=== PATIENT | female | born 1960 | race Two or more races ===

== ENCOUNTER 2023-05-27 18:39 | Inpatient (IN) | payer MEDICAID ==
[~2023-05-27] VITALS: Ht 170.2 cm; Wt 86.2 kg
[2023-05-27] MEDS ORDERED: IV NS 0.9% 1,000 ML BAG IV ONE (19:30)
[2023-05-27 19:55] LABS: BASOPHILS % (AUTO) 0.5 % (0.0-2.0); EOSINOPHILS # (AUTO) 0.1 K/uL (0.0-0.7); EOSINOPHILS % (AUTO) 1.2 % (0.0-6.0); HEMATOCRIT 40 % (33-45); HEMOGLOBIN 13.7 g/dL (11.5-14.8); LYMPHOCYTES # (AUTO) 2.5 K/uL (0.8-4.8); LYMPHOCYTES % (AUTO) 32.6 % (20.0-44.0); MEAN CORPUSCULAR HEMOGLOBIN 30 PG (26.0-33.0); MEAN CORPUSCULAR HGB CONC 34 g/dl (31.0-36.0); MEAN CORPUSCULAR VOLUME 87 fL (82-100); MONOCYTES # (AUTO) 0.3 K/uL (0.1-1.30); MONOCYTES % (AUTO) 4.3 % (2.0-12.0); NEUTROPHILS # (AUTO) 4.7 K/uL (1.8-8.9); NEUTROPHILS % (AUTO) 61.4 % (43.0-81.0); PLATELET COUNT (AUTO) 193 K/uL (150-450); RED BLOOD CELL COUNT(AUTO) 4.61 MIL/uL (4.0-5.2); RED CELL DISTRIBUTION WIDTH 12.8 % (11.5-15.0); WHITE BLOOD COUNT (AUTO) 7.7 K/uL (4.3-11.0)
[2023-05-27 20:25] LABS: CALCIUM, SERUM 8.8 mg/dL (8.5-10.1); CARBON DIOXIDE 24 mmol/L (21-32); CHLORIDE 104 mmol/L (98-107); CREATININE 0.7 mg/dL (0.6-1.3); GLUCOSE 136 mg/dL (74-106); POTASSIUM 3.5 mmol/L (3.5-5.1); SODIUM SERUM 141 mmol/L (136-145); UREA NITROGEN, BLOOD 19 mg/dL (7-18)
[2023-05-27 20:38] LABS: NT-PRO BNP 74 pg/mL (0-125)
[2023-05-27] MEDS ORDERED: ONDANSETRON HCL/PF 4 MG/2 ML VIAL ONE (21:20)
[2023-05-27] MEDS ORDERED: ONDANSETRON HCL/PF - ER 4 MG/2 ML VIAL IV ONE (21:30)
[2023-05-28] MEDS ORDERED: ACETAMINOPHEN 325 MG TABLET PO ONE (08:30)
[2023-05-28] MEDS ORDERED: *INSULIN REGULAR(HUMULIN R)HUM 100 UNIT/ML VIAL SQ PRN (08:30)
[2023-05-28] MEDS ORDERED: DEXTROSE 50%-WATER 50 ML DISP.SYRIN IV PRN (08:30)
[2023-05-28] MEDS ORDERED: ZOLPIDEM TARTRATE 5 MG TABLET PO ONE (08:30)
[2023-05-28] MEDS ORDERED: INSULIN REGULAR, HUMAN 100 UNIT/ML 3 ML VIAL SQ PRN (08:30)
[2023-05-28] MEDS: BLOOD SUGAR DIAGNOSTIC 1 EACH STRIP VI SCH ×2 (08:30→12:00)
[2023-05-28] MEDS ORDERED: SEMA0.25 SQ (08:43)
[2023-05-28] MEDS ORDERED: OMEP40CA21 PO (08:43)
[2023-05-28] MEDS ORDERED: EVOL140S2 SQ (08:43)
[2023-05-28] MEDS ORDERED: PANTOPRAZOLE 40 MG TABLET.DR PO SCH (09:00)
[2023-05-28 09:19] LABS: BASOPHILS % (AUTO) 0.5 % (0.0-2.0); EOSINOPHILS # (AUTO) 0.1 K/uL (0.0-0.7); EOSINOPHILS % (AUTO) 1.3 % (0.0-6.0); HEMATOCRIT 39 % (33-45); HEMOGLOBIN 13.2 g/dL (11.5-14.8); LYMPHOCYTES # (AUTO) 2.1 K/uL (0.8-4.8); MEAN CORPUSCULAR HEMOGLOBIN 30 PG (26.0-33.0); MEAN CORPUSCULAR HGB CONC 34 g/dl (31.0-36.0); MEAN CORPUSCULAR VOLUME 88 fL (82-100); MONOCYTES # (AUTO) 0.4 K/uL (0.1-1.30); MONOCYTES % (AUTO) 5.6 % (2.0-12.0); NEUTROPHILS # (AUTO) 4.9 K/uL (1.8-8.9); NEUTROPHILS % (AUTO) 64.6 % (43.0-81.0); PLATELET COUNT (AUTO) 184 K/uL (150-450); RED BLOOD CELL COUNT(AUTO) 4.42 MIL/uL (4.0-5.2); WHITE BLOOD COUNT (AUTO) 7.6 K/uL (4.3-11.0)
[2023-05-28 09:41] LABS: CALCIUM, SERUM 8.6 mg/dL (8.5-10.1); CREATININE 0.7 mg/dL (0.6-1.3); POTASSIUM 4.2 mmol/L (3.5-5.1)
[2023-05-28 09:47] LABS: ALBUMIN 3.5 g/dL (3.4-5.0); BILIRUBIN,TOTAL 0.4 mg/dL (0.2-1.0); TOTAL PROTEIN, SERUM 7.3 g/dL (6.4-8.2)
[2023-05-28 09:51] LABS: THYROID STIMULATING HORMONE 4.841 uIU/mL (0.358-3.74)
[2023-05-28 10:00] VITALS: BP 109/68; TEMP 98.6; O2SAT 98
[2023-05-28] MEDS ORDERED: ACETAMINOPHEN 325 MG TABLET PO PRN (10:30)
[2023-05-28] MEDS ORDERED: ZOLPIDEM TARTRATE 5 MG TABLET PO PRN (10:30)
== END 2023-05-28 14:05 | disposition home or self-care (01) | DRG 201 ==
LOC: ER 18:42 → TELE 05-28 09:55
PROVIDERS: ADMIT Internal Medicine; ATTEND Internal Medicine
DX: I47.10 Supraventricular tachycardia, unspecified (principal); E11.9 Type 2 diabetes mellitus without complications; I10 Essential (primary) hypertension; Z87.891 Personal history of nicotine dependence
CPT/HCPCS: 36415; 71045-TC; 80048-TC; 80053-TC; 83880; 84443-TC; 84484-TC; 85025-TC; 93307-TC; G0378; J1815; J2405